=== PATIENT | male | born 1935 | race Caucasian/White ===

== ENCOUNTER 2017-05-06 07:33 | Inpatient (IN) | payer OTHER, MEDICARE ==
[~2017-05-06] VITALS: Ht 172.7 cm; Wt 103.9 kg
--- NOTE | ~2017-05-06 | CATHLAB ---
[facility] [place] [address] INVASIVE PROCEDURE REPORT Name: PANCHOLOIS A Room #: 214-P ADM IN ..#: [id number] Admission: 05/06/17 Attend Phys: Mauricio Perez Discharge: Date of : 33 Date of Service: 05/06/17 1631 Report #: [id number] THIS REPORT FOR: //name// APPROVED REPORT Patient Details Patient Status: In-Patient Room #: The patient is a 81 year-old male Event Personnel Jan Marrero Special Events Assistant, Suzy Cary RN RN, Ezra Lance RN, Scott Wong Aloi, Christine Monitor, Heike Giron Monitor Procedures Performed Art Access - R radial artery Left Heart Cath w/or w/o Coronaries [id number] [facility] [address]IER Place w/wo Plasty Single RCA 254203 Hemostasis with Hemoband 63811 Initial Mod Sed Same Phys/QHP Gr5y 478701 27387 Mod Sed Same Phys/QHP Ea 676569 Indication Dyspnea, Unstable angina Risk Factors Peripheral Vascular Disease, Hypercholesterolemia, Coronary Artery DiseaseHypertension Procedure Narrative The Right Wrist^ was infiltrated with 1% Lidocaine subcutaneous anesthesia. A TRANSRADIAL SLENDER 6F GLIDESHEATH KIT #[id number] sheath was inserted into the Right Radial Artery^. Coronary angiography was performed using coronary diagnostic catheters. The right coronary system was accessed and visualized with a JR 4 catheter. The left coronary system was accessed and visualized with a JL 3.5 catheter. The left ventricle was accessed and visualized with a Pigtail catheter. Left ventricular/Aortic Valve gradient assessed via catheter pullback. Left ventriculogram was performed in 30 degree projection. The patient tolerated the procedure well and there were no complications associated with the procedure. There was no hematoma. Intraoperative Conscious Sedation Sedation start time: 11:22 Case end Time: 12:15 Fentanyl 25 mcg Vers[address] [facility] [place] [address] INVASIVE PROCEDURE REPORT Name: LOIS DELEON Room #: 214-P [place] [facility]#: [id number] Admission: 05/06/17 Attend Phys: Mauricio Perez Discharge: Date of : 33 Date of Service: 05/06/17 1631 Report #: [id number] Fluoro Time: 12.57 minutes Dose: DAP 49722.40 cGycm2 13173 mGy Contrast Type and Amount: Visipaque 245 ml Coronary Angiography The patient's coronary anatomy is right dominant. Diagnostic Cath Left Main Large caliber vessel, no flow limiting lesions. LAD Moderate size caliber vessel, minimal plaquing in proximal segment. Circumflex Small-caliber vessel, with mild diffuse disease proximally, 30%. OM1 Moderate size caliber vessel, with mild disease in the proximal segment. Right Coronary Dominant vessel with a stent in the mid segment, with severe restenosis, 70%. R PDA No flow-limiting lesions. RPLV No flow-limiting lesions. Ramus Moderate size caliber vessel, with mild plaquing in the proximal segment. Left Ventriculography The left ventricle is normal in size with normal contractility. The left ventricular ejection fraction is estimated to be >55%. Hemodynamics The aortic pressure is 105/57 mmHg with a mean of 76 mmHg. The left ventricular pressure is 116/4 mmHg with a mean of mmHg. The left ventricular end diastolic pressure is 9 mmHg. PCI Technique Lesion Anticoagulation was achieved with Heparin. Percutaneous coronary intervention was performed on the mid right coronary artery. A VISTA 6FR JR 4 #[id number] Guide Catheter was used to engage the RCA ostium. A Luge Wire .014 x 182CM #[id number] Interventional Guidewire was used to cross the lesion. BALLOON DILATION A Balloon catheter TREK NC RX 2.5 X 12 #[id number] was inserted and inflated up to 10.00atm for 19seconds. STENT DEPLOYMENT [facility] [address] [place] [address] INVASIVE PROCEDURE REPORT Name: LOIS DELEON Room #: 214-P [place] M.R.#: [id number] Admission: 05/06/17 Attend Phys: Mauricio Perez Discharge: Date of : 33 Date of Service: 05/06/17 1631 Report #: [id number] A drug-eluting stent RESOLUTE RX 2.75 X 18 #[id number] was inserted and inflated up to 14atm for 20seconds. POST STENT DEPLOYMENT BALLOON DILATION A Balloon catheter Euphora NC RX 3.0 x 12 #[id number] was inserted and inflated up to 18.00atm for 20seconds. Additional Inflation: 16.00atm for 17seconds. Final angiography reveals 5 % stenosis with BERLIN 3 flow. COMMENTS Successful insertion of a 2.75 mm drug-eluting stent, postdilated with a 3.0 mm noncompliant balloon. Conclusion 1. Successful insertion of a drug-eluting stent into the restenotic lesion in the mid segment of the RCA. 2. Normal LV systolic function. 3. Recommend dual antiplatelet therapy for at least 6 months to one year. Recommendations Aggressive Medical Therapy <ELECTRONICALLY SIGNED> By: Jan Marrero MD 05/06/17 1631 163 163 Jan Marrero MD /INF
--- NOTE | ~2017-05-06 | EKG ---
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
--- NOTE | ~2017-05-06 | EKG ---
[address] [place] [address] ELECTROCARDIOGRAM REPORT Name: LOIS DELEON Room #: 214-P ADM IN M.R.#: [id number] Admission: 05/06/17 Attend Phys: Scott Segura MD Discharge: Date of : 33 Report #: [id number] THIS REPORT FOR: //name// [facility] Test Date: 2017-05-07 Test Time: 06:17:57 Pat Name: LOIS DELEON Department: Room: 214 P Gender: M Corporate Lawyer: SHANDA : 1935 Requested By: Jan Marrero Order Number: [id number] MD: Measurements Intervals [place] Rate: 64 P: 50 MO: 211 QRS: 55 QRSD: 103 T: 44 QT: 415 QTc: 428 Interpretive Statements Sinus rhythm Atrial premature complex Low voltage, extremity leads Anteroseptal infarct, old Compared to ECG 12/25/2006 03:20:32 Atrial premature complex(es) now present Low QRS voltage now present Myocardial infarct finding now present Sinus bradycardia no longer present First degree AV block no longer present [email or web address] By: 0617 06 Epiphany Epiphany, /EPI
--- NOTE | ~2017-05-06 | D ---
[facility] [place] [address] DISCHARGE SUMMARY Name: LOIS DELEON Room #: 214-P [facility] IN ..#: [id number] Admission: 05/06/17 Attend Phys: Scott Segura MD Discharge: 05/07/17 Date of : 33 Report #: [id number] THIS REPORT FOR: //name// CC: Scott Azar Julissa Goldberg Lucas DATE OF SERVICE: 05/07/2017 FINAL DIAGNOSES: Coronary artery disease. PROCEDURES: Cardiac catheterization with a right coronary stent. HOSPITAL COURSE: The patient was admitted with left-sided jaw and upper chest pain. He had some minor EKG changes. Dr. Marrero saw him in consultation, cardiac catheterization was performed. Please see his note for full details. Essentially, he had a stent placed in re-stenotic region. He tolerated the procedure well without incident. Overnight, he remained pain free with no symptoms. PHYSICAL EXAMINATION: GENERAL: On the day of discharge, he was awake and alert, eating a regular diet. VITAL SIGNS: Stable. LUNGS: Clear. HEART: Regular. ABDOMEN: Soft, normoactive bowel sounds. EXTREMITIES: Showed no edema. DISPOSITION: He will be discharged to home with cardiac diet, activity as tolerated, resume all home medications plus Effient 10 mg daily and pravastatin 40 mg a day along with his amlodipine, Lopressor, hydrochlorothiazide, finasteride, Flomax, Xanax, Celebrex, fish oil, metoprolol 25 mg, aspirin 81 mg. Follow up with Dr. Quintana in 1 month. <ELECTRONICALLY SIGNED> By: Scott Segura MD 05/07/17 1313 0819 0944 Scott Segura MD /nt
--- NOTE | ~2017-05-06 | EKG ---
[address] [place] [address] ELECTROCARDIOGRAM REPORT Name: LOIS DELEON Room #: 214-P ADM IN M.R.#: [id number] Admission: 05/06/17 Attend Phys: Scott Segura MD Discharge: Date of : 33 Report #: [id number] THIS REPORT FOR: //name// [facility] Test Date: 2017-05-06 Test Time: 15:11:56 Pat Name: LOIS DELEON Department: Room: 214 P Gender: M Tint Layer: Mauricio HAMM : 1935 Requested By: Jan Marrero Order Number: [id number] MD: Measurements Intervals [place] Rate: 61 P: 20 WV: 223 QRS: 18 QRSD: 98 T: 28 QT: 407 QTc: 410 Interpretive Statements Sinus rhythm Multiple premature complexes, vent & supraven Prolonged WV interval Low voltage, extremity leads Probable anteroseptal infarct, old Compared to ECG 12/25/2006 03:20:32 Low QRS voltage now present Myocardial infarct finding now present Sinus bradycardia no longer present [email or web address] By: 1511 1511 Epiphany Epiphany, /BIPIN
--- NOTE | ~2017-05-06 | H ---
[facility] [address] [address] HISTORY AND PHYSICAL Name: LOIS DELEON Room #: 214-P [facility] IN ..#: [id number] Admission: 05/06/17 Attend Phys: Scott Segura MD Discharge: Date of : 33 Report #: [id number] THIS REPORT FOR: //name// CC: Scott Constantinoernst Goldberg Lucas DATE OF SERVICE: 05/06/2017 CHIEF COMPLAINT: Neck and chest pain. HISTORY OF PRESENT ILLNESS: The patient is an 81-year-old gentleman with a history of heart disease, came to the emergency room this morning after being awaken at 3:00 a.m. with pain on the left side of his neck and chest. He felt some pain just from his ear down his neck towards his left upper chest. The pain persisted throughout the morning. Upon arrival to the emergency room here while walking in from his car through the parking lot, he complained of shortness of breath. In the ER, the pain has slowly subsided without much medical intervention. He has had no shortness of breath, nausea, vomiting or diaphoresis at rest. PAST MEDICAL HISTORY: Coronary artery disease. He has had a previous cardiac stent in 2004, hypertension, BPH, GERD, peripheral artery disease. He has had some iliac stents, hypertension, and arthritis. PAST SURGICAL HISTORY: As above. FAMILY HISTORY: Noncontributory. SOCIAL HISTORY: He is , lives with his at home. No chronic alcohol or tobacco use. ALLERGIES: MORPHINE. MEDICATIONS: Amlodipine, losartan and hydrochlorothiazide, Plavix, Proscar, Flomax, Combivent, Xanax, Celebrex, multivitamin, Lopressor. REVIEW OF SYSTEMS: He denies headache, productive cough, nausea, vomiting, diarrhea, constipation, dysuria, syncope. OBJECTIVE: VITAL SIGNS: Temperature 36.9, pulse 75, respirations 20, blood pressure 160/69. GENERAL: He is awake and alert, in no distress. HEAD AND NECK: Unremarkable. LUNGS: Clear. [facility] [address] [place] [address] HISTORY AND PHYSICAL Name: LOIS DELEON Room #: [address] [place] [address] IN M.R.#: [id number] Admission: 05/06/17 Attend Phys: Scott Segura MD Discharge: Date of : 33 Report #: [id number] HEART: Regular. ABDOMEN: Obese, soft, normoactive bowel sounds. EXTREMITIES: No edema. NEUROLOGIC: He is alert and oriented. Global strength is intact throughout. Lab reviewed electronically. Troponin 0.04. ASSESSMENT: 1. Chest pain. 2. Coronary artery disease. 3. Hypertension. PLAN: He will be admitted for cardiac event rule out with medical treatment at this point. Dr. Marrero has been consulted and home medications to continue. <ELECTRONICALLY SIGNED> By: Scott Segura MD 05/06/17 1334 0926 1002 Scott Segura MD /jesus
--- NOTE | ~2017-05-06 | EKG ---
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: [id number] : 1935 Requested By: Patricia Ashton Order Number: [id number] MD: Measurements Intervals [place] Rate: 82 P: 38 [place]: 203 QRS: 43 QRSD: 89 T: 16 QT: 359 QTc: 420 Interpretive Statements Sinus rhythm Ventricular trigeminy Low voltage, extremity leads Minimal ST depression, lateral leads Compared to ECG 12/25/2006 03:20:32 Ventricular premature complex(es) now present Low QRS voltage now present ST (T wave) deviation now present Sinus bradycardia no longer present First degree AV block no longer present [email or web address] By: 0742 0742 Epiphany Epiphany, /EPI
[~2017-05-06 07:33] MED LIST: ACULAR 0.5% EYE5 ML OP; ASPIR 8181 MG PO; CELEBREX 200 M200 M1 PO; COMBIVENT INH; COZAAR 50 MG TA50 M2 PO; FISH OIL 1,001000 M2 PO; FLOMAX0.4 MG PO; HYDROCHLOROTH12.5 M1 PO; LIVALO2 MG PO; NORCO 5-325 TA1 EACH PO; NORVASC10 MG PO; PLAVIX 75 MG TA75 M1 PO; PREDNISONE 20 M20 MG PO; PROSCAR 5MG TABL5 MG PO; TIMOPTIC2.5 M1; TOPROL XL100 MG PO; UNICOMPLEX M TA1 TA1 PO; XANAX 0.25 MG0.25 MG PO
[2017-05-06 07:40] VITALS: BP 160/69
[2017-05-06] MEDS ORDERED: LOPRESSOR25 PO (08:07)
[2017-05-06 08:36] LABS: ABSOLUTE NEUTROPHILS 7.3 thou/uL (1.4-8.2); BASOPHILS 0.4 % (0.0-2.0); HEMATOCRIT 38.8 % (42.0-52.0); HEMOGLOBIN 13.8 gm/dL (14.0-18.0); LYMPHOCYTES 12.3 % (24.0-44.0); MCH 30.5 pg (26.0-34.0); MCHC 35.7 g/dL (28.0-37.0); MCV 85.6 fL (80.0-100.0); MONOCYTES 5.5 % (1.0-8.0); PLATELET COUNT 185 thou/uL (150-400); POLYS 80.8 % (36.0-66.0); RBC 4.53 mil/uL (4.50-6.00); RDW 14.5 % (10.5-14.5)
[2017-05-06 08:37] LABS: MANUAL DIFF NO
[2017-05-06 08:39] LABS: APTT 26.1 Seconds (24.5-32.8); PROTIME 9.8 Seconds (9.3-11.4)
[2017-05-06 08:58] LABS: ANION GAP 14 mmol/L (7-16); BUN 23 mg/dL (7-18); CALCIUM 9.1 mg/dL (8.5-10.1); CHLORIDE 103 mmol/L (98-107); CO2 22 mmol/L (21-32); CREATININE 1.2 mg/dL (0.7-1.3); GLUCOSE 125 mg/dL (74-106); POTASSIUM 3.8 mmol/L (3.5-5.1); SODIUM 139 mmol/L (136-145)
[2017-05-06 09:06] LABS: TROPONIN-I < 0.04 ng/mL (<0.04-0.07)
[2017-05-06 09:43] VITALS: BP 136/57
[2017-05-06 10:17] VITALS: BP 145/64
[2017-05-06 13:20] VITALS: BP 172/66
[2017-05-06 19:53] VITALS: BP 146/75
[2017-05-06 23:34] VITALS: BP 146/68
[2017-05-07 03:45] LABS: HEMATOCRIT 32.7 % (42.0-52.0); MCH 30.9 pg (26.0-34.0); MCHC 36.8 g/dL (28.0-37.0); RBC 3.89 mil/uL (4.50-6.00); RDW 14.5 % (10.5-14.5); WBC 7.5 thou/uL (4.0-11.0)
[2017-05-07 04:11] LABS: CALCIUM 8.4 mg/dL (8.5-10.1); POTASSIUM 3.5 mmol/L (3.5-5.1); TROPONIN-I 0.2 ng/mL (<0.04-0.07)
[2017-05-07 04:12] VITALS: BP 147/58
[2017-05-07 07:32] VITALS: BP 156/74
[2017-05-07] MEDS ORDERED: EFFIENT10 MG PO (07:41)
[2017-05-07] MEDS ORDERED: ASPIR 8181 MG PO (07:43)
[2017-05-07] MEDS ORDERED: PRAVACHOL40 MG PO (07:52)
[2017-05-07 09:30] VITALS: BP 156/74
== END 2017-05-07 10:38 | disposition home or self-care (01) | DRG 247 ==
LOC: ER 07:33 → 2N 08:14 → EROBS 08:14 → 4W 08:14 → 2N 10:00
PROVIDERS: Emergency Medicine; Internal Medicine Cardiovascular Disease
PROC: 027034Z Dilation of Coronary Artery, One Artery with Drug-eluting Intraluminal Device, Percutaneous Approach (ICD-10-PCS; principal; 2017-05-06)
PROC: B2111ZZ Fluoroscopy of Multiple Coronary Arteries using Low Osmolar Contrast (ICD-10-PCS; principal; 2017-05-06)
PROC: B2151ZZ Fluoroscopy of Left Heart using Low Osmolar Contrast (ICD-10-PCS; principal; 2017-05-06)
PROC: 4A023N7 Measurement of Cardiac Sampling and Pressure, Left Heart, Percutaneous Approach (ICD-10-PCS; principal; 2017-05-06)
DX: T82.855A Stenosis of coronary artery stent, initial encounter (principal); I24.9 Acute ischemic heart disease, unspecified; I10 Essential (primary) hypertension; Z96.1 Presence of intraocular lens; K21.9 Gastro-esophageal reflux disease without esophagitis; K80.20 Calculus of gallbladder without cholecystitis without obstruction; I25.10 Atherosclerotic heart disease of native coronary artery without angina pectoris; N40.0 Benign prostatic hyperplasia without lower urinary tract symptoms; I73.9 Peripheral vascular disease, unspecified; M19.90 Unspecified osteoarthritis, unspecified site; I71.4 Abdominal aortic aneurysm, without rupture; E78.5 Hyperlipidemia, unspecified; I65.29 Occlusion and stenosis of unspecified carotid artery; E78.00 Pure hypercholesterolemia, unspecified; M47.816 Spondylosis without myelopathy or radiculopathy, lumbar region; Y83.8 Other surgical procedures as the cause of abnormal reaction of the patient, or of later complication, without mention of misadventure at the time of the procedure; Z87.81 Personal history of (healed) traumatic fracture; Z98.42 Cataract extraction status, left eye; Z98.41 Cataract extraction status, right eye; I25.2 Old myocardial infarction; Z88.5 Allergy status to narcotic agent; Z82.49 Family history of ischemic heart disease and other diseases of the circulatory system; Z87.891 Personal history of nicotine dependence; Y92.89 Other specified places as the place of occurrence of the external cause
CPT/HCPCS: 10081

== ENCOUNTER → 2017-07-17 | Outpatient (CLI) | payer OTHER, MEDICARE ==
[~2017-07-17] MED LIST changes: +EFFIENT10 MG PO; +LOPRESSOR25 PO; +PRAVACHOL40 MG PO
[2017-07-17 09:34] LABS: ABSOLUTE NEUTROPHILS 5.6 thou/uL (1.4-8.2); BASOPHILS 0.6 % (0.0-2.0); EOSINOPHILS 3.9 % (0.0-3.0); HEMATOCRIT 37.2 % (42.0-52.0); HEMOGLOBIN 13.1 gm/dL (14.0-18.0); LYMPHOCYTES 18.3 % (24.0-44.0); MCHC 35.2 g/dL (28.0-37.0); MCV 85.2 fL (80.0-100.0); MONOCYTES 7.7 % (1.0-8.0); PLATELET COUNT 213 thou/uL (150-400); POLYS 69.5 % (36.0-66.0); RBC 4.37 mil/uL (4.50-6.00); RDW 14.4 % (10.5-14.5); WBC 8.1 thou/uL (4.0-11.0)
[2017-07-17 09:37] LABS: MANUAL DIFF NO
[2017-07-17 09:48] LABS: CALCIUM 9.1 mg/dL (8.5-10.1); POTASSIUM 3.8 mmol/L (3.5-5.1)
== END ==
LOC: LABMALL 09:02 → CAT 11:51 → LABMALL 11:57
PROVIDERS: Nuclear Medicine Nuclear Cardiology
DX: I71.4 Abdominal aortic aneurysm, without rupture (principal)

== ENCOUNTER 2017-10-15 05:21 | Inpatient (IN) | payer OTHER, MEDICARE ==
[2017-10-01 11:06] LABS: HEMATOCRIT 39.8 % (42.0-52.0); HEMOGLOBIN 13.9 gm/dL (14.0-18.0); MCH 29.6 pg (26.0-34.0); MCHC 34.9 g/dL (28.0-37.0); MCV 84.7 fL (80.0-100.0); RBC 4.7 mil/uL (4.50-6.00); RDW 14.8 % (10.5-14.5); WBC 9.7 thou/uL (4.0-11.0)
[2017-10-01 11:09] LABS: URINE BILIRUBIN NEGATIVE (Negative); URINE BLOOD NEGATIVE (Negative); URINE CLARITY CLEAR; URINE COLOR YELLOW; URINE GLUCOSE-RANDOM* NEGATIVE (Negative); URINE KETONES NEGATIVE (Negative); URINE LEUKOCYTES NEGATIVE (Negative); URINE NITRITE NEGATIVE (Negative); URINE PROTEIN (DIPSTICK) NEGATIVE (Negative)
[2017-10-01 11:20] LABS: ALBUMIN 3.5 g/dL (3.4-5.0); CALCIUM 9.3 mg/dL (8.5-10.1); CREATININE 1.1 mg/dL (0.7-1.3); POTASSIUM 4.1 mmol/L (3.5-5.1); TOTAL BILIRUBIN 0.7 mg/dL (<0.1-1.0); TOTAL PROTEIN 6.9 g/dL (6.4-8.2)
[2017-10-01 11:27] LABS: APTT 26.1 Seconds (24.5-32.8)
[2017-10-15] VITALS (13 sets, daily range): BP systolic 66–135; BP diastolic 36–78
[~2017-10-15] VITALS: Ht 172.7 cm; Wt 98.6 kg
--- NOTE | ~2017-10-15 | EKG ---
[address] [place] [address] ELECTROCARDIOGRAM REPORT Name: LOIS DELEON Room #: PRE IN [facility]#: [id number] Admission: Attend Phys: Dirk Kent MD Discharge: Date of : 33 Report #: [id number] THIS REPORT FOR: //name// [facility] Test Date: 2017-10-01 Test Time: 10:46:50 Pat Name: LOIS DELEON Department: Room: Gender: Hot Dipper: kalebyvan : 1935 Requested By: Dirk Kent Order Number: [id number] MD: Kevin Masterson Measurements Intervals [place] Rate: 72 P: 27 MA: 202 QRS: 35 QRSD: 96 T: 22 QT: 384 QTc: 421 Interpretive Statements Sinus rhythm Low voltage, extremity leads Compared to ECG 05/07/2017 06:17:57 Atrial premature complex(es) no longer present Myocardial infarct finding no longer present Electronically Signed On 10-01-2017 15:10:46 KEY BED INSTALLER by Kevin Masterson [email or web address] <ELECTRONICALLY SIGNED> By: Kevin Masterson MD 10/01/17 1510 1046 1046 Kevin Masterson MD /BIPIN
[2017-10-16] VITALS (31 sets, daily range): BP systolic 90–220; BP diastolic 42–104
[2017-10-16 04:55] LABS: HEMATOCRIT 33.5 % (42.0-52.0); HEMOGLOBIN 11.7 gm/dL (14.0-18.0); MCH 29.7 pg (26.0-34.0); MCV 84.7 fL (80.0-100.0); RBC 3.95 mil/uL (4.50-6.00); RDW 14.9 % (10.5-14.5); WBC 14.9 thou/uL (4.0-11.0)
[2017-10-16 05:12] LABS: CALCIUM 8.2 mg/dL (8.5-10.1); MAGNESIUM 1.4 mg/dL (1.8-2.4); POTASSIUM 3.8 mmol/L (3.5-5.1)
[2017-10-17] VITALS: BP 156/53
[2017-10-17 04:30] VITALS: BP 136/46
[2017-10-17 07:40] VITALS: BP 118/34
[2017-10-17] MEDS ORDERED: ASPIRIN325 PO (10:14)
[2017-10-17] MEDS ORDERED: TYLENOL325 MG PO (10:14)
[2017-10-17 11:35] VITALS: BP 136/41
[2017-10-17 15:35] VITALS: BP 125/46
[2017-10-17 19:50] VITALS: BP 165/59
[2017-10-18 04:30] VITALS: BP 119/41
[2017-10-18 07:20] VITALS: BP 143/62
[2017-10-18 11:50] VITALS: BP 147/50
== END 2017-10-18 13:45 | DRG 269 ==
LOC: ICU 05:21 → TBA 05:21 → PRE 05:31 → ICU 16:41 → 2N 10-16 16:55
PROVIDERS: Nurse Practitioner; Thoracic Surgery (Cardiothoracic Vascular Surgery)
PROC: 04V03DZ Restriction of Abdominal Aorta with Intraluminal Device, Percutaneous Approach (ICD-10-PCS; principal; 2017-10-15)
DX: I71.4 Abdominal aortic aneurysm, without rupture (principal); I25.10 Atherosclerotic heart disease of native coronary artery without angina pectoris; I10 Essential (primary) hypertension; E78.5 Hyperlipidemia, unspecified; E83.42 Hypomagnesemia; F41.9 Anxiety disorder, unspecified; N40.0 Benign prostatic hyperplasia without lower urinary tract symptoms; Z79.899 Other long term (current) drug therapy; Z88.6 Allergy status to analgesic agent
CPT/HCPCS: 10078; 10081; 47375; 50010; 50101; 50386; 50455; 51078; 56524; 56526; 56527; 56668; 56760; 57093; 62110; 62900; 65020; 65040; 65043; 70005

== ENCOUNTER 2018-11-27 09:25 | Inpatient (IN) | payer OTHER, MEDICARE ==
[~2018-11-27] VITALS: Ht 172.7 cm; Wt 95.3 kg
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
[~2018-11-27 09:25] MED LIST changes: +ASPIRIN325 PO; +TYLENOL325 MG PO
[2018-11-27 09:26] VITALS: BP 121/55
[2018-11-27 09:55] LABS: ABSOLUTE NEUTROPHILS 5.9 thou/uL (1.4-8.2); BASOPHILS 0.6 % (0.0-2.0); EOSINOPHILS 2.5 % (0.0-3.0); HEMATOCRIT 39.3 % (42.0-52.0); HEMOGLOBIN 13.5 gm/dL (14.0-18.0); LYMPHOCYTES 12.5 % (24.0-44.0); MCH 29.5 pg (26.0-34.0); MCHC 34.4 g/dL (28.0-37.0); MCV 85.9 fL (80.0-100.0); MONOCYTES 7.4 % (1.0-8.0); PLATELET COUNT 246 thou/uL (150-400); RBC 4.57 mil/uL (4.50-6.00); RDW 14.7 % (10.5-14.5); WBC 7.6 thou/uL (4.0-11.0)
[2018-11-27 10:03] LABS: ANION GAP 12 mmol/L (7-16); BUN 18 mg/dL (7-18); CALCIUM 9.1 mg/dL (8.5-10.1); CHLORIDE 104 mmol/L (98-107); CO2 25 mmol/L (21-32); CREATININE 1.4 mg/dL (0.7-1.3); GLUCOSE 118 mg/dL (74-106); POTASSIUM 3.2 mmol/L (3.5-5.1); SODIUM 141 mmol/L (136-145)
[2018-11-27 10:12] LABS: ALBUMIN 3.2 g/dL (3.4-5.0); SGOT 20 U/L (15-37); SGPT 10 U/L (30-65); TOTAL BILIRUBIN 0.9 mg/dL (<0.1-1.0); TROPONIN-I <0.06 ng/mL (<0.06)
[2018-11-27 11:23] LABS: URINE BILIRUBIN NEGATIVE (Negative); URINE BLOOD NEGATIVE (Negative); URINE CLARITY CLEAR; URINE COLOR YELLOW; URINE GLUCOSE-RANDOM* NEGATIVE (Negative); URINE KETONES NEGATIVE (Negative); URINE LEUKOCYTES-REFLEX NEGATIVE (Negative); URINE NITRITE-REFLEX NEGATIVE (Negative); URINE PROTEIN (DIPSTICK) NEGATIVE (Negative); URINE SPECIFIC GRAVITY 1.025 (1.005-1.035)
[2018-11-27] MEDS ORDERED: TOPROL XL25 MG PO (11:24)
[2018-11-27] MEDS ORDERED: CELEXA10 MG PO (11:25)
[2018-11-27] MEDS ORDERED: XANAX 0.5 MG0.5 MG PO (11:25)
[2018-11-27] MEDS ORDERED: COZAAR 25 MG TA25 M1 PO (11:26)
[2018-11-27] MEDS ORDERED: PRAVACHOL40 MG PO (11:26)
[2018-11-27] MEDS ORDERED: AMLODIPINE BESY10 MG PO (11:26)
[2018-11-27 11:31] LABS: AMP/METHAMP Negative (Negative); BARBITURATES Negative (Negative); BENZODIAZEPINES POSITIVE (Negative); COCAINE Negative (Negative); METHADONE Negative (Negative); OPIATES Negative (Negative); PCP Negative (Negative)
[2018-11-27 13:33] VITALS: BP 153/63
[2018-11-27 14:06] VITALS: BP 150/57
--- NOTE | 2018-11-27 16:20 | NUR ---
PATIENT ADMITTED TO ROOM 526, ORDERS DR. INDY LONDON FOR CONFUSION, FORGETFULNESS. RESISISTIVE TO ADMISSION, WANTS TO HAVE DR. PARRY. 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 DAUGHTER WAS ENCOURAGED TO LEAVE ABOUT 1500. PATIENT SPOKE WITH NURSEKELLIE ENCOURAGED TO STAY. CONTINUE TO MONITOR.
--- NOTE | 2018-11-27 16:44 | EKG ---
[place] [address] [facility] [place] [address] ELECTROCARDIOGRAM REPORT Name: LOIS DELEON Room #: 526B-B ADM IN M.R.#: [id number] ������������������ Admission: 11/27/18 ������������������ Attend Phys: Savage Renee MD Discharge: ������������������ Date of : 33 Report #: [id number] ����������������������������������������������������������������� [id number] THIS REPORT FOR: //name// [facility] Test Date: 2018-11-27 Test Time: 09:55:13 Pat Name: LOIS DELEON Department: Room: 170 Gender: M Attendant Self Service Store: JAGDISH : 1935 Requested By: Christie Domingo Order Number: [id number] MD: Silver Arora Measurements Intervals [place] Rate: 76 P: 27 [place]: 194 QRS: 17 QRSD: 93 T: 15 QT: 369 QTc: 415 Interpretive Statements Sinus rhythm Multiform ventricular premature complexes left atrial enlargement Low voltage limb leads Anteroseptal infarct age indeterminate Compared to ECG 10/01/2017 10:46:50 Ventricular premature complex(es) now present Electronically Signed On 11-27-2018 13:38:29 TRACK GRINDER OPERATOR by Silver Arora K GRINDER OPERATOR [email or web address] ��������������������������������������������� <ELECTRONICALLY SIGNED> ���������������������������������������� By: Silver Arora MD ��������������������������������������������� 11/27/18 1644 4 4 Silver Arora MD /EPI
--- NOTE | 2018-11-27 17:43 | NUR ---
JANITORIAL ACCOUNT MANAGER, WU, ASSESSED PATIENT AT 1700; HOWEVER, RECEIVED A CALL BACK FROM N.P. REPORTED THAT DR. MCKEON IS PATIENT'S REGULAR DOCTOR. NURSE CALLED DR. MCKEON'S ANSWERING SERVICE. DR. NUNEZ TRAPEZE PERFORMER, WHO RETURNED THIS NURSE'S CALL AND WILL SEE PATIENT TOMORROW, SAT., NOVEMBER 28. SUSHMAELIZABETH BROUGHT IN HIS OWN BOTTLE OF ATIIVAN 0.5 MG; PHARMACY CONTACTED, STATED TO PLACE IN A BAG FROM THE [facility] AND THEY WILL SENIOR DEVOPS ENGINEER THE MEDICATION.
[2018-11-28 00:36] VITALS: BP 108/64
--- NOTE | 2018-11-28 01:51 | NUR ---
ASSESSMENT COMPLETE. 100/62 82 20 97.8F 92% ON RA. CONFUSION NOTED, STATES "I NEED TO GO TO MY MOTHER'S TOMORROW AND I NEED TO LEAVE THE HOSPITAL NOW" (FOR THAT PURPOSE). ADVISED THAT WHEN HE SEES TOMORROW WILL NEED TO DISCUSS WITH FOR PERMISSION TO LEAVE HOSPITAL AND ATTEND . TOOK 2100 MEDS WHOLE WITH WATER. INCONTINENT OF BOWEL IN BRIEFS. PT CLEANED UP AND NEW BRIEFS PROVIDED. RESISTED EFFORTS TO CLEAN UP AND PROVIDE NEW BRIEFS, SAYING "IM AN ADULT, DONT YOU THINK I CAN TAKE MYSELF TO THE BATHROOM?" OUT OF BED REPEATEDLY, COMMING OUT OF ROOM WITH NO SHIRT/HOSPITAL GOWN ON TO COVER CHEST. EXPLAINED EACH TIME THAT IN PUBLIC AREAS IT IS REQUIRED THAT HE WEAR THE GOWN OR A SHIRT. T SHIRT PROCURED FROM PTS LOCKER, AND PROVIDED TO WEAR.
--- NOTE | 2018-11-28 06:32 | NUR ---
SLEPT 6 HOURS.
[2018-11-28 07:16] LABS: BASOPHILS 0.4 % (0.0-2.0); EOSINOPHILS 1.7 % (0.0-3.0); HEMATOCRIT 34.5 % (42.0-52.0); HEMOGLOBIN 12.4 gm/dL (14.0-18.0); LYMPHOCYTES 17.5 % (24.0-44.0); MCH 30.8 pg (26.0-34.0); MCHC 35.8 g/dL (28.0-37.0); MCV 85.9 fL (80.0-100.0); MONOCYTES 7.8 % (1.0-8.0); PLATELET COUNT 199 thou/uL (150-400); POLYS 72.6 % (36.0-66.0); RBC 4.02 mil/uL (4.50-6.00); RDW 14.6 % (10.5-14.5); WBC 6.9 thou/uL (4.0-11.0)
[2018-11-28 07:28] LABS: CREATININE 1.1 mg/dL (0.7-1.3); MAGNESIUM 1.5 mg/dL (1.8-2.4); POTASSIUM 3.1 mmol/L (3.5-5.1)
[2018-11-28 07:30] VITALS: BP 151/60
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
[2018-11-28 12:49] VITALS: BP 151/60
--- NOTE | 2018-11-28 17:49 | NUR ---
PATIENT REQUESTED THE PHONE AT ABOUT 1600, TO CALL HIS DAUGHTER, KELLIE. KELLIE HAD PREVIOUSLY STATED THAT SHE WOULD WAIT UNTIL FRIDAY AFTERNOON TO CALL PATIENT, SO DID NOT IMMEDIATELY GIVE HIM THE PORTABLE PHONE. HE BECAME VERY ANGRY AND POUNDED HIS FIST ON THE NURSE,S STATION DOOR BEFORE GOING TO HIS ROOM. NURSE DID GIVE PATIENT THE PHONE A SHORT TIME LATER TO SPEAK TO HIS DAUGHTER. HOWEVER, NURSE TOOK THE PHONE BACK AFTER HE HAD A SHORT CONVERSATION WITH KELLIE. HE WAS ARGUING WITH HER ABOUT PICKING HIM TO TAKE HIM HOME. PATIENT HAS BEEN DISTRACTED SINCE THAT TIME WITH DINNER, AND CONVERSING BY NURSECYNTHIA.
[2018-11-28 19:20] VITALS: BP 142/73
[2018-11-29 01:17] VITALS: BP 142/73
--- NOTE | 2018-11-29 04:21 | NUR ---
PT HAS OBVIOUS MEMORY ISSUES. BELIEVES IS STILL ALIVE, EVEN THOUGH STAFF AND FAMILY HAVE INFORMED HIM OTHERWISE. IN AND OUT OF ROOM EARLY IN SHIFT. TOOK HS MEDS W/O PROBLEM. FORGETFUL. THINKS HE HAS A JOB TO DO HERE. WANTED TO ASSIST STAFF DOING THE LAUNDRY. UP AND DOWN DURING THE NIGHT. OUT IN DAY AREA ONE TIME. SPOKE WITH KELLIE ON THE PHONE BEFORE GOING TO BED. SPEPT OFF AND ON THROUGH THE NIGHT.
[2018-11-29 07:58] VITALS: BP 137/64
--- NOTE | 2018-11-29 08:02 | HC ---
[facility] [place] [address] CONSULTATION Name: PANCHOKARYY HAYLEY Room #: 526B-B ADM IN M.R.#: [id number] Admission: 11/27/18 ������������������ Attend Phys: Savage Renee MD Discharge: ������������������ Date of : 31 Report #: [id number] THIS REPORT FOR: //name// CC: Doe Renee DATE OF SERVICE: 11/28/2018 REASON FOR CONSULTATION: Medical management. HISTORY OF PRESENT ILLNESS: The patient is an 83-year-old gentleman who was admitted to the Emergency Room with complaints of memory loss. His about 3 or 4 months ago and his family has reported short-term memory loss. They said at times he cannot remember that he attended his 's and that they talked about the preparations and ceremony. He has apparently been calling them several times a day and constantly asking where his is. He has been to the office twice. We had not seen him in the office for over 2 or 3 years and his daughter brought him in. Initially, my concern was that of depression related to his loss. Lexapro was added and he was seen two weeks later in follow up. At that time, his daughter still said he was showing short-term memory lapses and I referred him for outpatient neuropsych testing; however, it appears that his daughter said he has been becoming more confused in the last several days. It is not clear whether he is taking his medications or meals regularly and he had trouble walking. For this reason, they brought him to the Emergency Room. PAST MEDICAL HISTORY: Hypertension; prostatitis; lumbar disk disease, he has had surgery twice; coronary artery disease with prior history of stents; dyslipidemia; COPD; BPH. He has had abdominal aortic aneurysm, I believe previous stent graft. PAST SURGICAL HISTORY: As above. FAMILY HISTORY: Noncontributory. SOCIAL HISTORY: He was living at home alone, prior smoking history, but none recently. No chronic alcohol is known. ALLERGIES: MORPHINE. MEDICATIONS: Livalo 2 mg, Plavix 75 mg, hydrochlorothiazide 12.5 mg, Lexapro 10 mg, aspirin 81 mg, metoprolol 25 mg half tab b.i.d., losartan 100 mg, amlodipine 10 mg, fish oil, multivitamin, Xanax 0.25 mg twice a day as needed, Flomax 0.4 mg, Proscar 5 mg. REVIEW OF SYSTEMS: He denies headache, chest pain, shortness of breath, [facility] [address] [place] [address] CONSULTATION Name: LOIS DELEON Room #: 526B-B [facility].#: [id number] Admission: 11/27/18 ������������������ Attend Phys: Savage Renee MD Discharge: ������������������ Date of : 33 Report #: [id number] abdominal pain, nausea, vomiting, diarrhea, constipation, dysuria, syncope. OBJECTIVE: VITAL SIGNS: Temperature 37.1, pulse 87, respirations 16, blood pressure 108/64, O2 sat 96% on room air. GENERAL: He is awake and alert, in no distress. HEAD AND NECK: Unremarkable. LUNGS: Clear. HEART: Regular. ABDOMEN: Soft, normoactive bowel sounds. EXTREMITIES: No edema. NEUROLOGIC: He moves all extremities. Strength globally intact. COGNITIVE: He recognized that he was in the hospital. He recognized me as his doctor, but not by name. In one sentence, he stated that his mother's was today, but in the next sentence, he stated that Foster, his , about 3-4 weeks ago. LABORATORY DATA: Reviewed. Pertinent is potassium 3.1, magnesium 1.5. ASSESSMENT: 1. Hypertension. 2. Coronary artery disease. 3. Electrolyte disturbance. 4. Chronic obstructive pulmonary disease. 5. Situational depression. 6. Memory loss. PLAN: I will continue and consolidate his medications from home, electrolyte replacement will be added and follow up lab data on Friday. As mentioned, I started Lexapro as an outpatient. We will await psychiatric evaluation for mood treatment. I feel there is a degree of depression here from his recent loss, but also there may be underlying dementia, but now he is more exposed to his family that his is not there to support him. We will follow his stay for medical issues with you. ��������������������������������������������� <ELECTRONICALLY SIGNED> ���������������������������������������� By: Scott Segura MD ��������������������������������������������� 11/29/18801 6 42 Scott Segura MD /nt
[2018-11-29 09:45] VITALS: BP 142/73
--- NOTE | 2018-11-29 10:09 | NUR ---
ASSUMED CARE AT 0715. PT. REMAINS FORGETFUL, BUT IS REMEMBERING THINGS FOR SEVERAL MINUTES THAT HE HAS BEEN TOLD. YESTERDAY HE DID NOT REMEMBER ANYTHING HE WAS TOLD EVEN FOR FOR A MINUTE. HE TALKED TO HIS DAUGHTER ON THE PHONE. EATING WELL. TOOK MEDICATIONS WITHOUT DIFFICULTY.
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
[2018-11-30 01:33] VITALS: BP 159/50
--- NOTE | 2018-11-30 03:18 | NUR ---
PT UP AND DOWN MUCH OF THE NIGHT. VERY CONFUSED BUT REDIRECTABLE. WANTED TO CALL , BUT SETTLED FOR PHONE CALL TO DAUGHTER. RESTLESS. OUT OF ROOM ABOUT EVERY 2 HOURS THROUGH THE NIGHT. UNSURE TO WHO WE ARE AND WHAT WE'RE DOING. NEEDS CONSTANT CLARIFICATION TO WHY HE IS HERE.GENERALLY CORDIAL, WITH NO NEGATIVE BEHAVIOR.
[2018-11-30 04:40] LABS: CALCIUM 8.8 mg/dL (8.5-10.1); CREATININE 0.9 mg/dL (0.7-1.3); MAGNESIUM 1.7 mg/dL (1.8-2.4)
[2018-11-30 07:15] VITALS: BP 136/57
--- NOTE | 2018-11-30 18:38 | NUR ---
THIS NURSE WAS TALKING WITH PATIENT LOIS. LOIS WAS THINKING HE WAS SUPPOSED TO BE DISCHARGED TONIGHT AND WANTED HIS PERSONAL BELONGINGS RETURNED TO HIM AND WANTED HIS ADULT CHILDREN'S PHONE INFORMATION. LOIS APPEARED AGITATED. ANOTHER PATIENT, KE, WHO WANTED TO SPEAK WITH THIS NURSE AND APPEARED ANGRY APPROACHED THIS NURSE ALSO REQUESTING TO BE DISCHARGED. KE GOT CLOSER TO THIS NURSE, LOIS LUNGED AT KE AND PUSHED KE AWAY FROM THIS NURSE. THIS NURSE AND THE TECH LOIS AND KE AND ESCORTED THEM TO SEPARATE AREAS. ABOUT 10 MINUTES LATER WHEN KE AND LOIS WERE WITHIN TALKING DISTANCE, LOIS EXPLAINED TO KE THAT HE WAS TRYING TO TALK WITH THIS NURSE AND HE DIDN'T LIKE THAT HE WAS BEING INTERUPTED. LOIS THEN APOLIGIZED TO KE FOR HIS BEHAVIOR. UPON PROMPTING FROM THE TECH, KE APOLIGIZED TO LOIS.
--- NOTE | 2018-11-30 19:44 | NUR ---
PATIENT ALERT AND ORIENTED TO SELF AND NEEDS MIN. PROMPTING TO PLACE. PATIENT PARTICIPATED IN GROUPS AND GOOD APPETITE AND ASSISTING ANOTHER FEMALE PATIENT WITH WALKER THOUGHOUT THE DAY TO ENSURE SHE IS SAFE. PATIENT DAUGHTER UPDATE VIA PHONE IN MORNING AND AGAIN IN THE EVENING. SHE HAS QUESTIONS ABOUT TREATMENT PLAN AND DISCHARGE PLANS. SHE WOULD LIKE SUFFICIENT TIME TO PREPARE FOR HER FATHER'S DISCHARGE. SHE FEELS THAT SOMETIMES HE GETS ANGRY AND MAY INSIST ON RETURNING TO HIS HOME AND DRIVING. PATIENT STATES HE STAYS BUSY AND NEEDS TO RETURN HOME TO ACCOMPLISH TASKS. DR. AL AWARE OF PATIENT DAUGHTER'S QUESTIONS.
[2018-11-30 20:07] VITALS: BP 157/65
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
--- NOTE | 2018-12-01 06:29 | NUR ---
SLEPT 3.8 HOURS. SLEPT ON THE COUCH IN THE DAY ROOM PART OF THE NOC.
[2018-12-01 07:30] VITALS: BP 148/67
--- NOTE | 2018-12-01 15:27 | NUR ---
PATIENT HAS BEEN UP AND OUT ON THE UNIT. TOOK HIS MEDICATION WHOLE WITHOUT DIFFICULTY. HE IS EATING MEALS AND DRINKING FLUID VERY WELL. PATIENT IS ALERT, PLEASANTLY CONFUSED, BUT REDIRECTABLE. CONSTANTLY TALKING ABOUT CATCHING A CAB " I AM WAITING FOR MY TAXI SO I CAN GET HOME BEFORE DARK". PATIENT'S DAUGHTER CALLED WANTS SOMEBODY TO CALL AND TALK TO HER ABOUT PLAN OF CARE, THE DON NOTIFIED, THE CONCRETE GUN OPERATOR IS OUT OF THE FACILITY TODAY. PATIENT DENIES SUICIDAL AND HOMOCIDAL IDEATION, WILL NOT RESPOND APPROPRIATELY TO ASSESSMENT QUESTION DUE TO CONFUSION. NO AGGRESSION OR AGITATION NOTED AT THIS TIME, NO SIGN OF ACUTE DISTRESS NOTED, WILL MONITOR FOR SAFETY.
[2018-12-01 19:27] VITALS: BP 168/68
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
--- NOTE | 2018-12-02 05:51 | NUR ---
AWAKENED @ 05:30. TOILETED AND ASSISTED TO DRESS IN HOSPITAL PANTS AND HOSPITAL GOWN. SLEPT 9 HOURS. WENT BACK TO HIS ROOM AND TOOK OFF HIS HOSPITAL PANTS. SITTING ON THE BED, SAYS THAT HE DOES NOT KNOW HIS NAME OR AGE.
[2018-12-02 08:47] VITALS: BP 154/60
--- NOTE | 2018-12-02 15:21 | NUR ---
ASSUMED CARE AT 0715 TODAY. PT. CONTINUALLY ASKING THE SAME QUESTIONS TIME AND TIME AND TIME AGAIN OF STAFF, REFUSING TO ACCEPT ANSWERS AND/OR DOES NOT REMEMBER INFORMATION PROVIDED TO HIM. HE WAS ASKED TO ABORT THE REDUNDANT QUESTIONING AND ATTEND GROUPS THIS MORNING. HE REQUIRED SEVERAL REDIRECTIONS BEFORE HE COMPLIED WITH THE REDIRECTION OF STAFF. HE HAS ATTENDED GROUPS TODAY AND ATE MEALS ON THE UNIT. HAS BEEN LESS INTRUSIVE WITH STAFF AND PEERS SINCE THIS MORNING. SYPHILIS AB IGG DRAWN BUT ACCORDING TO LAB IT IS SENT OUT TO LAB [facility] AND MORE THAN LIKELY WILL NOT SEE RESULTS UNTIL FRIDAY. CONTINUES TO BE CONFUSED AND HALLUCINATES EVIDENCED BY SAYING PEOPLE ARE TALKING TO HIM IN HIS ROOM (NO ONE WILL BE IN HIS ROOM WHEN IS SAID), AND HAVING A HARD TIME WITH REDIRECTION AND BEING INTRUSIVE.
[2018-12-02 16:03] VITALS: BP 154/60
[2018-12-02 19:23] VITALS: BP 153/68
--- NOTE | 2018-12-02 22:49 | NUR ---
ASSUMED CARE OF THE PT AT 1945PM. THE PT WAS SITTING IN THE DAYROOM WHEN THIS SERVICE DESK SPECIALIST FIRST CAME ON DUTY, HE WAS EATING A SNACK AND WATCHING TV. ALERT ET ORIENTED X 2. WALKS WITH A STEADY GAIT. STATED THAT HE IS VERY ANXIOUS THIS PM, WANTED TO CALL HIS SECOND . EXPLAINED TO THE PT THAT SHE HAD RECENTLY. 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 THE PT TOOK HIS MEDICATIONS WITHOUT ANY DIFFICULY. HE WENT TO BED THEN CAME OUT IN THE HALLWAY, WITH HIS SHIRT OFF. REMAINS ON 12 MINUTE CHECKS.
--- NOTE | 2018-12-03 00:12 | NUR ---
THE PT C/O ABOUT BACK PAIN EARLIER IN THE SHIFT, THIS CHEMICAL LIBRARIAN GAVE THE PATIENT TYLENOL ORDERED, WHEN THIS CHEMICAL LIBRARIAN WENT TO GIVE IT TO HIM, HE QUESTIONED THIS CHEMICAL LIBRARIAN AND CAME WALKING TOWARDS THIS CHEMICAL LIBRARIAN, ASKING WHO THIS CHEMICAL LIBRARIAN WAS AND REFUSED TO TAKE THE MEDICATION, SAID HE WOULD TAKE IT LATER. THIS CHEMICAL LIBRARIAN EXPLAINED TO THE PT THAT THE MEDICATION COULD NOT BE LEFT IN HIS ROOM, HE TOOK IT AND CLOSED THE DOOR IN THE FACE OF THE CHEMICAL LIBRARIAN. THIS CHEMICAL LIBRARIAN CALLED THE RUBBER CUTTER LIBRARIAN HELPER, WHO GAVE THIS CHEMICAL LIBRARIAN AN ORDER FOR ZYPREXA 5 MG PO OR 5MG IM TO BE GIVEN EVERY 4 HOURS NEEDED FOR AGITATION.
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
--- NOTE | 2018-12-03 04:23 | NUR ---
STAFF WALKED INTO THE PT'S ROOM AND FOUND THE PT SITTING ON THE OTHER BED IN HIS ROOM, THE BED IN WHICH HE HAS BEEN SLEEPING IN HAD BECOME UNPLUGGED FROM THE WALL. HE HAD THROW HIS CLOTHING ALL OVER THE ROOM. THE PT STATED, "WHEN ARE THE VOICE DATA COMMUNICATIONS ENGINEER COMING? THIS ROOM IS GOING TO EXPLODE!" HE MOVED A CHAIR OUT OF HIS ROOM AND MOVED IT INTO THE HALLWAY, WE CLOSED THE DOOR TO HIS ROOM. HE STATED, "THAT SOMEONE HAD BETTER COME AND SEE THAT SOMETHING WAS COMING OUT OF HIS ROOM, UNDER THE DOORWAY." STAFF TRIED TO REASSURE THE PT, HE IS NOW SITTING IN THE CHAIR IN THE HALLWAY.
--- NOTE | 2018-12-03 06:12 | NUR ---
THE PT SLEPT 1 HOUR LAST NIGHT.
[2018-12-03 07:51] VITALS: BP 148/76
--- NOTE | 2018-12-03 18:20 | NUR ---
[id number] NAME AND LOCATION. PLEASANTLY CONFUSED. GOOD APPETITE FED SELF MEALS IN DINNING ROOM. ATTENDED GROUPS WITH GOOD PARTICIPATION. VISITED WITH PEERS IN DINNING ROOM MOST OF DAY. SLOW STEADY GAIT.
[2018-12-03 20:27] VITALS: BP 161/58
[2018-12-04 00:41] VITALS: BP 161/58
--- NOTE | 2018-12-04 03:25 | NUR ---
PT REMAINS CONFUSED AND FORGETFUL. CALLED DAUGHTER, AND 20 MINUTES LATER ASKED TO CALL DAUGHTER. DID NOT BELIEVE THAT HE HAD ALREADY SPOKEN WITH HER. SMILES READILY, AND HAS SHOWN NO SIGNS OF ANGER OR HOSTILITY IN ANY WAY. TOOK HS MEDS AFTER EVENING SNACK. SLEPT WELL UNTIL 0300, THEN UP UNSURE TO WHERE HE IS. REDIRECTED AND RETURNED TO ROOM AND TO SLEEP.
[2018-12-04 07:48] VITALS: BP 139/60
--- NOTE | 2018-12-04 16:55 | NUR ---
PATIENT WAS PACING INSTEAD OF SITTING IN GROUP PARTICIPATING FOR THE AFTERNOON GROUP. THIS NURSE SUCCESSFULLY ENGAGED PATIENT IN COMPLETING FIVE UZBEK PUZZLES TO HELP HIM RELIEVE STRESS. PATIENT DID BECOME MORE CALM, SAT DOWN AT DR TABLE AFTER PUZZLES AND LOOKED AT SOME MAGAZINES, UNTIL HIS DAUGHTER, KELLIE, CAME TO VISIT WITH HIM. PATIENT WALKED DAUGHTER TO EXIT DOOR, DID NOT ATTEMPT TO LEAVE WITH HER. CONTINUE TO MONITOR.
--- NOTE | 2018-12-04 17:28 | NUR ---
7a-7p: Patient ambulatory in halls and in dining room, confusion noted to place, time and events, easily re-directed when searching for exit, no aggressive behavior noted this shift. One episode of patient undressing in hallway, easily re-directed to room. Appetite good, consumes 100% at meals, takes pills without problem. Patient requires minimal assist for ADL's, ambulates independently, gait slow and unsteady at times. Denies pain or discomfort, last BM 12/03, bowel sounds active x4 wuads, lung tierney CTA bilat, no cough noted. Actively participates in therapy and group sessions. Will continue to monitor.
[2018-12-04 19:26] VITALS: BP 164/65
[2018-12-04 23:54] VITALS: BP 164/65
--- NOTE | 2018-12-05 03:07 | NUR ---
PT RESTLESS THIS PM. UP AT DESK, SEEKING ATTENTION FROM STAFF ABOUT WHEN HE IS GETTING TO LEAVE. INFORMED HIM ON MORE THAN ONE OCCASION THAT HIS DISCHARGE WILL BE DECIDED BY TEAM, INCLUDING MD. "WHEN", HE WANTED TO KNOW. UNABLE TO MAKE HIM UNDER STAND. CONFUSED AND LACKS RECALL OF PREVIOUS CONVERSATIONS. TOOK HS MEDS FOLLOWING SNACKS. PROVIDED TRAZADONE TO ASSIST WITH SLEEP. RETURNED TO ROOM AT 2200, AND CONTINUES TO SLEEP AT THIS TIME.
[2018-12-05 07:15] VITALS: BP 141/62
[2018-12-05 10:32] VITALS: BP 141/62
[2018-12-05 19:16] VITALS: BP 158/67
--- NOTE | 2018-12-05 23:54 | NUR ---
ASSUMED CARE @ 19:15. IN THE DAY ROOM SITTING AT A TABLE WITH HIS BACK TO THE WINDOW. OVERCAST WEATHER NOTED. A&O X 2 ORIENTED TO PERSON AND PRESIDENT. THINKS THAT HE IS IN [place] IN A HOTEL. VS 36.4 C 158/67 78 22 95. GIVEN TRAZADONE PRN @ HS WITH 2100 MEDS @ 21:15. DENIES SI HI. STATES FEELS A LITTLE LESS CONFUSED. MINIMAL CONFUSION CONTINUES, DOES REMEMBER THAT HIS MOTHER PASSES WHEN HE WAS A TEENAGER. THE FIRST NOC THAT HE WAS ON THE FLOOR, HE THOUGHT HIS MOTHERS WOULD BE THE NEXT DAY, AND HE NEEDED TO LEAVE TO GO. WENT TO HIS ROOM @ 11:30. NOT IN BED AT THIS TIME OF WRITING. WILL CONTINUE TO MONITOR.
[2018-12-06 11:48] VITALS: BP 158/6
[2018-12-06 13:05] VITALS: BP 171/75
--- NOTE | 2018-12-06 15:33 | NUR ---
PT. ON THE UNIT WHEN CARE WAS ASSUMED AT 0715. PT. HAD NOT SLEPT ONLY 1 HOUR ALL NIGHT. DID NOT SLEEP TODAY. DID TAKE SHOWER THIS AM. MANIC BEHAVIORS CONTINUE EVIDENCED BY CONTINUAL TALKING, TRYING TO CARE TAKE FEMALE PEERS, BEFRIENDING MALE PEERS, ASKING TO GET INTO HIS ROOM OVER AND OVER AND OVER AGAIN. HE ATTEMPTED TO MAKE A CAST FOR HIS ROOM DOOR OUT OF A SUGAR PACKET, WEDGED A SACK IN HIS DOOR TO HIS ROOM BEFORE CLOSING IT. HE CONTINUALLY CAME TO THE NURSES STATTION ASKING TO HAVE HIS ROOM UNLOCKED AT LEAST 8 TIMES IN A ROW IN A 5 MINUTE PERIOD OF TIME BECAUSE HE CONTINUALLY SHUT HIS DOOR LOCKING IT. PT. ASKED TO KEEP HIS ROOM DOOR OPEN, HOWEVER, HE DID NOT DO THIS. DID ATTEND GROUPS. ONE FEMALE PEER TOLD HIM HE NEEDED TO BE QUIET. HE STOPPED TALKING FOR A SHORT PERIOD OF TIME. HAS NOT REPORTED HAVING A BM TODAY OF THIS WRITING. OUT FOR ALL MEALS. COOPERATIVE WITH TAKEING HIS MEDICATIONS. AT ONE POINT ANOTHER NURSE REPORTED HE WAS GETTING HANDSY WITH THE LADIES AND NEEDED SOME REDIRECTION.
[2018-12-06 19:56] VITALS: BP 176/76
[2018-12-06 23:40] VITALS: BP 153/91
[2018-12-07 05:29] LABS: CALCIUM 8.2 mg/dL (8.5-10.1); CREATININE 0.8 mg/dL (0.7-1.3); POTASSIUM 3.8 mmol/L (3.5-5.1)
--- NOTE | 2018-12-07 07:28 | NUR ---
patient restless, walking in hallways, with increasing anxiety in the evening. talking with a female patient about leaving together, sitting next to each other in day room. this was under direct nursing supervision, no harm to either patient from interactions but did have a factor in increasing this patient's anxiety. seperated him from this stimuli. patient began having hallucinations about a homicide investigation occuring on unit. did not respond to evening meds, given IM injection of olanzeprine. continued to have steady gait, sitting on side of bed with no obvious sedation. patient observed falling/sitting down to the floor, appeared to be loss of balance or weakness. unchanged physical reassessment, baseline mentation, able to stand with x [address] Horn and nursing tooling supervisor notified. left message with daughter. no injury noted, did not hit his head. continued to sit on side of bed fidgeting with blankets for 1 hr, then was able to sleep soundly for 4hrs. calm, pleasant this morning. compliant with changing clothes after urine incontinence, steady gait although slower this morning.
[2018-12-07 08:00] VITALS: BP 129/49
--- NOTE | 2018-12-07 08:54 | NUR ---
SHANIA left a voicemail for Inez Vazquez concerning pt. SHANIA provided contact information. SHANIA requested a call back.
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
--- NOTE | 2018-12-07 14:15 | NUR ---
Nutrition: pt admitted with generalized weakness, depression and seen for LOS. 100% of meals documented and pt voiced that he "always cleans his plate". Likes the foods he has been receiving and voices no significant weight changes. Low nutrition risk at this time.
--- NOTE | 2018-12-07 14:39 | NUR ---
MILDLY SOMULENT SO FAR THIS SHIFT-VISIBLE IN [place]-SITTING IN DAYROOM WITH PEERS BUT IS NOTED TO BE DOZING IN SHORT INTERVALS IN CHAIR. MILD DROOLING-APPEARS UNKEMPT-OFFERED SHAVE AND CHANGE OF CLOTHES BUT HE REFUSES STATING"I'M LEAVING TONIGHT" ORIENTED TO PERSON ONLY. DENIES COMPLAINTS OF PAIN.SLOWED SPEECH,BLUNTED AFFECT.
[2018-12-07 19:51] VITALS: BP 155/61
[2018-12-07 19:54] VITALS: BP 138/53
[2018-12-08] VITALS (7 sets, daily range): BP systolic 120–182; BP diastolic 64–76
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
--- NOTE | 2018-12-08 06:40 | NUR ---
TOOK 2100 MEDS WITHOUT DIFFICULTY. ASKED FOR AND PROVIDED HS SLEEP MEDS. REFUSED TO GO TO HIS BED, LAID ON THE COUCH @ 23:30. AWOKE @ 00:45 AND STUMBLED WHEN HE WALKED. STAFF TRIED TO ASSIST AND PATIENT HIT STAFF AND PUSHED THEM AWAY, UNSUPPORTED, HE FELL ON THE FLOOR, ASSISTED FALL. NO INJURIES NOTED IN POST FALL ASSESSMENT. INTERIOR DESIGN CONSULTANT ADVISED OF FALL. SECURITY CALLED, WITH THEIR ASSISTANCE, TRANSSFERRED TO W/C AND WHEELED TO HIS ROOM. CLEAN PANTS , CLEAN INCONTINENCE PANTS, PROVIDED. BECAME COMBATITIVE WITH SECURITY AND NURSING STAFF. AFTER HAD BEEN IN BED ABOUT 30 MINUTES, TRIED TO GET OUT OF BED. STAFF PROVIDED A URINAL, TO MEET HIS STATED NEED. GIVEN PRN FOR EXTREME AGITATION IM INJECTION. TOTAL SLEEP 4.8 HOURS.
--- NOTE | 2018-12-08 15:20 | NUR ---
Pt presented in afternoon recreation group following imaging tests. Pt sat in seat next to DEVELOPER EVANGELIST leading group. He began to fiddle with paperwork on table, grabbing colored pencils, and other pts tissues. DEVELOPER EVANGELIST requested that pt leave items be. Pt immediately stood up, hovered over DEVELOPER EVANGELIST, gritted teeth so that top dentures nearly fell out, and raised a fist while stating I'll tell you what I'm going to do. DEVELOPER EVANGELIST told pt that he would need to leave group and that violence is unacceptable. Pt exited group room and was ecorted to his own room by CADMIUM LIQUOR MAKER with no further incident.
--- NOTE | 2018-12-09 02:57 | NUR ---
PT RESTLESS AND UNSTEADY ON HIS FEET. THINKS HE IS "GETTING TOO MUCH MEDICINE" NEEDS CONSTANT ENCOURAGEMENT TO REMAIN IN BED. DOUBLED UP FIST AT THIS STAFF AND NEEDED TO BE REMINDED OF THE INAPPROPRIATENESS OF THAT GESTURE. CONTRITE AND GOT INTO BED WITH ASSIST. FINALLY SETTLED AND CONTINUES TO BE SLEEPING AT THIS TIME. FRUSTRATION AND CONFUSION REMAIN BARRIERS.
--- NOTE | 2018-12-09 11:58 | NUR ---
Dr. Horn left a voicemail for Ayde Vazquez concerning pt. Dr. Horn stated that pt health is improving, and potentially will be d/c on December 142018. SW requesting follow-up call.
--- NOTE | 2018-12-09 13:19 | NUR ---
NOTED TO BE UNKEMPT THIS AM-SMELLS OF URINE,UNSHAVEN,CLOTHING SOILED-INITALLY REFUSED OFFERS OF NURSING STAFF TO ASSIST WITH SHOWER AND SHAVE-STATING "I WILL DO IT LATER" BUT WITH PROMPTING AND SUPPORT DID COMPLY-IS NOTED DURING AM ASSESSMENT TO HAVE 4+ PEDAL EDEMA TO FEET AND CALVES BILAT.-HARD TENSE [id number] TO TOUCH-FEET ELEVATED WHILE UP IN DAYROOM AND TOOK 45 MIN NAP IN BED WITH FEET ELEVATED AFTER SEVERAL PROMPTS-ORIENTED TO PERSON ONLY-BELIEVES HE IS AT THE [facility]-WHEN INFORMED HE WAS IN HOSPITAL ASSUMES THAT HE WAS IN A [place] AND ASKED SEVERAL TIMES "WHERE DID THE WRECK OCCUR" OR "IS THE HIG[address] [place] COMING UP TO QUESTION ME" AND "WAS ANYONE ELSE INVOLVED" GAIT IS UNSTEADY-ROLLER WALKER PROVIDED AND INSTRUCTED ON USAGE-REVIWED FALL PRECAUTIONS AND PT STATES UNDERSTANDING. COMPLIENT WITH MEDICATIONS AND ACCEPTS VERBAL QUEING/REDIRECT/SUPPORT WITHOUT RESISTANCE. APPEARS DROWSY INITALLY THIS AM-NAPPING FOR LONG INTERVALS WHILE SITTING INCHAIR IN DAYROOM.
--- NOTE | 2018-12-09 14:19 | NUR ---
SHANIA sent referral to [facility], and [facility] care [facility].
--- NOTE | 2018-12-09 19:11 | NUR ---
ABDOMEN NOTED TO BE FIRM,SLIGHTLY DISTENDED-BS PRESENT X4-STATES HIS BOWELS MOVED THIS AM BUT IS NOT A RELIABLE RN FLIGHT-DR. GAN ON FLOOR AND NOTIFIED OF ABOVE-ORDERS RECEIVED. DID REPORT TO STAFF AT APPROX 1615 THAT HE FELT "WEIRD" AND NERVOUS-REQUESTING MEDICATION FOR ANXIETY-ZYPREXA 5MGPO PRN-WILL MONITOR
--- NOTE | 2018-12-09 23:50 | NUR ---
ASSUMED CARE @ 19:15. REPORTED THAT HE FELT HAPPY TODAY, DENIES SI AND HI. CALLED ON HOUSE PHONE. REPORTED THAT SHE DID NOT ANSWER AND HE WAS WORRIED ABOUT HER. REMINDED THAT , REDIRECTED SUCCESSFULLY. WENT TO BED AFTER SNACKS. AWAKENED @ 21:30 FOR 2100 MEDS. PROVIDED CLEAN PIJAMA BOTTOMS, HE HAS WET HIS BOTTOMS, AND WAS NAKED.
--- NOTE | 2018-12-10 00:44 | NUR ---
AWAKENED @ 0030, WALKED INTO HALLWAY WITH ONLY A BLANKET ON. ALLOWED HIMSELF TO BE AMBULATED BACK TO HIS ROOM X1 ASSIST. CLEAN PIJAMA BOTTOMS AND BRIEF PROVIDED. INCONTINENT OF BLADDER. REMAINS CALM, BUT CONFUSED. 2300 MEDS INCLUDING NEW DOSE OF SEROQUEL 50 PROVIDED. ALLOWED HIMSELF TO BE LAID DOWN IN BED AND SHEETS/BLANKETS ADJUSTED. REMINDED THAT HE WOULD NEED TO GO TO THE TOILET WHEN HE FELT THE URGE TO HAVE A BM. NO BM YET. ABD CONTINUES TO BE FIRM, NORMOACTIVE BOWEL SOUNDS X4Q. HRRR, LUNGS CTA ALL DE ANDA. PULSES EQUAL TO ALL EXTREMITIES.
--- NOTE | 2018-12-10 06:10 | NUR ---
AWAKENED, SITTING ON THE SIDE OF THE BED. INCONTINENT OF BM. WATERY STOOL AFTER MAGNESIUM CITRATE AT HS. SLEPT 7 HOURS.
[2018-12-10 07:45] VITALS: BP 107/41
--- NOTE | 2018-12-10 10:21 | NUR ---
0815: Arrived to patients room in response to bed alarm. Observed patient sitting on floor beside bed, awake, oriented to name (unch'd). Head-to-toe assessment completed, no apparent injury. YK=944/69, P=62, R=16, skin w/d, color WNL, neuro-checks WNL. Dr. Segura and Dr. Horn notified of fall, no new orders at this time. [facility] space control supervisor notified of non injury fall. Will continue to monitor with neuro-checks, and observation/assessment.
--- NOTE | 2018-12-10 11:15 | NUR ---
Recreational Therapy Weekly Progress Note Date of Admission: 11/27/18 Date of Activity Therapy Assessment: 11/30/2018 Activity Goal: Patient will participate in 2 recreational therapy groups per day until discharge. Initial Goal: Increase/maintain reality orientation. Weekly progress towards goal: On track Group participation level: Moderate Behaviors observed: Patient attends a minimum of 1 group per day. Continues to be disoriented and require frequent prompting and direction during group. Ocassional aggitation. Plan: No change towards goal
[2018-12-10 12:45] VITALS: BP 163/69
--- NOTE | 2018-12-10 13:36 | NUR ---
1200: Continue to monitor patient post fall. Awake, denies pain when ask, to dining room for meals and group participation, mobility via w/c due to weakness and decrease mobility. Neuro-checks unchg'd, no apparent injury noted. More alert and awake at noon meal, feeds self with set-up and stand by assist.
[2018-12-10 20:51] VITALS: BP 158/47
--- NOTE | 2018-12-11 00:53 | NUR ---
ASSUMED CARE @ 1915. SITTING IN W/C IN DAY ROOM. TRIES TO STAND WITHOUT FOOT RESTS MOVED OUT OF THE WAY. EDUCATED REGARDING NEEDS ASSISTANCE FOR SAFETY. CONFUSION NOTED, DOES NOT CONPLY WITH VERBAL OR TACTILE CARE INSTRUCTIONS. TRANSFERRED TO COUCH AT PTS REQUEST. WATCHING BASKETBALL ON TV. OUT OF BED X2 WITH X1-2 ASSIST TO URINATE. WHEN PT ROLLS AND SETS ALARM OFF, HE GETS OUT OF BED. RETURNED TO BED X4. TYLENOL PROVIDED FOR BACK PAIN 04/07 @ 00:30. ONE ON ONE CONTINOUS MONITORING WITH PATIENT FROM 00:45.
--- NOTE | 2018-12-11 03:25 | NUR ---
PT SAT UP IN BED, FROM SITTING POSITION ON SIDE OF BED, OFFERED URINAL TO URINATE. PT CHARGED STAFF MEMEBER, WENT INTO THE HALLWAY AND ATTEMPTED TO PULL THE DOOR CLOSED ON STAFF MEMBER, FALLING IN THE PROCESS. PT WAS COMBATITIVE AND CONTINUED HE STATED 'I GOT TO ESCAPE THIS FACILITY'. PT AMBULATED WITH X2 ASSIST AND GAIT BELT TO THE TOILET, HE URINATED, THEN AMBULATED X1 ASSIST WITH GAIT BELT TO THE BED. LAID DOWN IN BED, COVERED UP AND HEN HE GOT UP AGAIN IN A FEW MINUTES. CONTINUAL MONITORING ON NECESSARY TO PROTECT PATIENT FROM LACK AWARENESS OF HIS OWN SAFETY. PRN 5MG OF OLANZAPINE PROVIDED FOR EXTREME AGITATION. PT TRANSFERRED TO W/C AND PPROPELLED TO THE DAY ROOM, TV TURNED ON, AND PT SETTLED ON SOFA WITH HIS PILLOW. ANXIETY, AGITATION, IMPULSIVENESS NOTED. DENIES BURNING AND DYSURIA.
[2018-12-11 03:43] LABS: CALCIUM 8.8 mg/dL (8.5-10.1); CREATININE 0.8 mg/dL (0.7-1.3); POTASSIUM 4.2 mmol/L (3.5-5.1)
--- NOTE | 2018-12-11 04:14 | NUR ---
CONTINUALLY STANDS WHILE SITTING ON SOFA IN DAY ROOM. WHEN STAFF ATTEMPTED TO PUT GAIT BELT ON, PT GRABBED STAFF BY THE ARMS, RESPONDING WITH ANGER, SAYING " YOUR NOT GOING TO PUT THAT ON ME". REMINDED THAT THE GAIT BELT WAS JUST TO PROTECT HIS SAFETY WHEN HE STANDS UP, HE SAID," THERE IS NO WHERE TO GO, SO JUST LEAVE ME ALONE" REPORTS SEEING BOXES OF CEREAL, THEN STANDS UP AND THEY DISAPPEAR. SKIN TEAR ON RIGHT FOREARM IS BLEEDING THROUGH THE STERI STRIPS. GAUZE SQUARE APPLIED, NON ADHERANT PAD AND WRAPPED IN ROLL GUAZE.
[2018-12-11 10:28] LABS: URINE BILIRUBIN NEGATIVE (Negative); URINE BLOOD NEGATIVE (Negative); URINE CLARITY CLEAR; URINE COLOR YELLOW; URINE GLUCOSE-RANDOM* NEGATIVE (Negative); URINE KETONES NEGATIVE (Negative); URINE LEUKOCYTES-REFLEX TRACE (Negative); URINE NITRITE-REFLEX NEGATIVE (Negative); URINE PROTEIN (DIPSTICK) NEGATIVE (Negative); URINE SPECIFIC GRAVITY <= 1.005 (1.005-1.035); URINE UROBILINOGEN 0.2 E.U./dl (0.2-1.0)
[2018-12-11 12:19] VITALS: BP 127/60
--- NOTE | 2018-12-11 14:42 | NUR ---
1440: Patient moved to room 519 as fall risk intervention to allow closer observation of patient by staff, bilat fall mats in place, bed in low position, room clean and free of obstacles, lights on, call street within reach. Dtr to call U this evening and will update her on move at that time.
--- NOTE | 2018-12-11 14:47 | NUR ---
7a-2p: Patient has been cooperative with staff, follows simple directions, forgetful within 2-[address] Segura here to assess patient, coordinated care with a visit from Dr. Horn, new orders wrote and noted. Ammonia level drawn, results 48, Dr. Horn notified. Telephone call from dtledy Messer, visited with THOMAS Mccrary about patients behavior and med changes, dtr will call back this pm for update. Patient has participated in group and therapy sessions today, less lethargic, less weakness with a steadier gait, but continues to require close supervision and assist x1-2 for ADL's, shower given today.
[2018-12-11 14:50] VITALS: BP 127/60
--- NOTE | 2018-12-11 15:57 | NUR ---
SHANIA sent a referral to [facility] to see if pt qualify for memory care unit. SHANIA will follow-up with pt to see if he accepted into facility.
[2018-12-11 19:23] VITALS: BP 104/53
[2018-12-12 00:18] VITALS: BP 104/53
[2018-12-12 00:23] VITALS: BP 104/53
--- NOTE | 2018-12-12 03:32 | NUR ---
PT REMAINS UNPREDICTABLE WITH SHORT MEMORY. NEEDS CONTANT SUPERVISION HE NEEDS TO BE REMINDED TO AMBULATE WITH WALKER FOR SUPPORT. OUT WATCHING TV. TOOK HS MEDS PRESCRIBED. ASSISTED TO BEDAROUND 2300. SLEPT WELL UP TO THIS TIME.
[2018-12-12 07:48] VITALS: BP 112/54
--- NOTE | 2018-12-12 08:15 | NUR ---
CLIENT OUT THIS AM FOR BREAKFAST TO EAT, IN W/C ROLLING SELF TO ROOM. APPEARS VERY SLEEPY. OXYGEN SAT TAKEN. 87% ON ROOM AIR. RECHECKED SAT AND TOLD CLIENT TO TAKE A DEEP BREATH, 91%. LUNGS DIMINISHED, SWELLING TO ANKLE/PEDAL +2. ABLE TO WALK WITH WALKER OR WITHOUT. WHEN HE WALKS, HE STATED HE WAS WALKING LIKE A DUCK.
[2018-12-12 11:08] VITALS: BP 112/54
--- NOTE | 2018-12-12 13:15 | NUR ---
WALKING AROUND THE DINNING ROOM WITHOUT WALKER. ENCOURAGE PATIENT TO USE WALKER.
--- NOTE | 2018-12-12 15:05 | NUR ---
ATTENDING GROUP AT THIS TIME. CLIENT STATED HE WANTED TO GO SOUTH. ASKING ANOTHER PATIENT THAT IS DISCHARGING IF HE IS GOING TO GO [place] OR [place]. HE IS WANTING TO GO HOME.
[2018-12-12 17:25] VITALS: BP 139/61
[2018-12-12 19:36] VITALS: BP 146/81
[2018-12-13 02:26] VITALS: BP 146/81
--- NOTE | 2018-12-13 02:47 | NUR ---
PT CONTINUES TO EXHIBIT CONFUSION AND MEMORY PROBLEMS. OUT IN DAY AREA WITH WALKER BUT OCCASIONALLY FORGETS AND WALKS W/O IT. WATCHED TV EARLY, AND TOOK HS MEDS PRESCRIBED. UP AND DOWN A COUPLE TIMES TONIGHT TO THE BATHROOM TO VOID. SLEPT WELL ALL IN ALL.
[2018-12-13 07:00] VITALS: BP 124/54
[2018-12-13 10:43] VITALS: BP 124/54
--- NOTE | 2018-12-13 16:53 | NUR ---
7a-7p: Up in halls ambulatory with walker, gait steady, shower and shave completed this a.m. Oriented to name only, cooperative with staff, participates in meals and therapy/groups. Increase independence with ADL's noted, susan Messer given update on status, med changes and dc planning. Yellow finger band sent home with susan Messer, due to tight fit of band on finger. 2-3+ noted to BLE. Page to Dr. Eduardo @ [phone], no return call. Dr. Horn here to see patient. Susan Messer here @ [phone] for visit. Will cont. to monitor.
[2018-12-13 19:38] VITALS: BP 166/62
--- NOTE | 2018-12-14 02:39 | NUR ---
IN DAYROOM VISITING WITH PEERS AT START OF SHIFT-FULL RANGE AFFECT-PLEASANT WITH NOTED SPONTANEOUS SMILING AND VERBAL RESPONSES, COMPLIENT WITH HS MEDICATIONS-TRAZADONE 50MG GIVEN PO PRN AT 2130 APPROX 30 MIN AFTER GOING TO BED. DID APPEAR TO REST BRIEFLY BUT BACK UP IN HALLWAY FULLY DRESSED AT APPROX 2330-STATES HE THOUGHT IT WAS TIME TO GET UP FOR DAY. APPROACHED THIS NURSE SHORT TIME LATER REQUESTING MEDICATION FOR LOW BACK PAIN RATED A 7 ON 1-10 SCALE-TYLENOL 625MG PO PRN AT APPROX 2345 WITH REPORTED FAIR RELIEF-STATES BACK "STILL HURTS" AT 0030 BUT RATES LEVEL 4.
[2018-12-14 07:22] VITALS: BP 138/42
--- NOTE | 2018-12-14 08:00 | NUR ---
CLIENT UP WALKING WITH WALKER THIS AM. STATED HE HAS SOME PAIN TO LOWER BACK OF 6 ON 1-10 SCALE. LUNGS CLEAR. SWELLING TO LOWER EXT NOT MUCH. GOAL TODAY WAS WAS TO KEEP EVERYTHING IN ORDER. STATED HIS BACK HURTS WHEN HE LEANS OVER, SIT DOWN, AND STANDING UP. ENCOURAGE USE OF WALKER, FORGETS AT TIMES.
[2018-12-14 12:20] VITALS: BP 138/42
[2018-12-14 12:21] VITALS: BP 138/42
--- NOTE | 2018-12-14 14:12 | NUR ---
CLIENT HAS BEEN PARTICIPATING IN GROUP THIS AFTERNOON. NO SIGNS OF CONFUSION.
--- NOTE | 2018-12-14 17:24 | NUR ---
EATING DINNER. CLIENT HAS ATTENDED GROUPS TODAY, WALKING WITH WALKER. ASKED ABOUT ONCE THIS SHIFT.
[2018-12-14 19:22] VITALS: BP 127/54
[2018-12-14 22:43] VITALS: BP 127/54
--- NOTE | 2018-12-15 04:46 | NUR ---
PT CONTINUES TO BE QUITE CONFUSED AND HAS BEEN GOING INTO OTHER PTS ROOMS. SEVERAL TIMES DURING THE EVENING AND ONCE AGAIN EARLY THIS AM PT FOUN IN THE WRONG ROOM. ESCORTED TO HIS OWN ROOM EACH TIME. DOES NOT SEEM TO PROCESS THAT HE NEEDS TO NOT ENGAGE IN THIS BEHAVIOR.
[2018-12-15 05:58] LABS: CALCIUM 8.2 mg/dL (8.5-10.1); CREATININE 0.8 mg/dL (0.7-1.3); POTASSIUM 3.7 mmol/L (3.5-5.1)
[2018-12-15 08:20] VITALS: BP 150/50
--- NOTE | 2018-12-15 09:43 | NUR ---
Patient Name: LOIS DELEON Admission Date: 11/27/18 DISCHARGE PLAN: Pt will be discharge to [facility] Care Assessment: Pt was assessed by Dr. Horn. Pt was diagnose with Major Neurocognitive Disorder. Pt was assessed with his medication regiment. Level II Assessment: None Transportation: Pt was transported by [facility] Special Instructions/Notes: Pt will be in a memory care lockdown unit. DISCHARGE TO FACILITY: Memory Care unit Facility: [facility] Fax: Address: [address] [place] [id number] Contact Name: Radha Yancey PCP: BRINDA Psychiatrist: [facility] Facility psychiatrist
[2018-12-15] MEDS ORDERED: FLOMAX0.4 MG PO (10:00)
[2018-12-15] MEDS ORDERED: CLOPIDOGREL75 MG PO (10:01)
[2018-12-15] MEDS ORDERED: LIPITOR 20 MG T20 M1 PO (10:01)
[2018-12-15] MEDS ORDERED: METOPROLOL SUCC25 M1 PO (10:03)
[2018-12-15] MEDS ORDERED: COZAAR100 MG PO (10:03)
[2018-12-15] MEDS ORDERED: ASPIR 8181 MG PO (10:05)
[2018-12-15] MEDS ORDERED: HALOPERIDOL 5 MG5 MG PO (10:06)
[2018-12-15] MEDS ORDERED: ACETAMINOPHEN325 M1 PO (10:06)
[2018-12-15] MEDS ORDERED: TRAZODONE HCL50 MG PO (10:07)
[2018-12-15] MEDS ORDERED: VITAMIN D5000 UNIT PO (10:07)
[2018-12-15] MEDS ORDERED: ZYPREXA 5 MG TAB5 M1 PO (10:07)
[2018-12-15] MEDS ORDERED: FINASTERIDE5 MG PO (10:09)
--- NOTE | 2018-12-15 10:30 | NUR ---
Nutrition: pt remains on [facility] unit. Continues to eat 100% of meals and voices no concerns to RD. Enjoys the food. No new weight to evaluate since 11/27. Continue as low risk.
--- NOTE | 2018-12-15 10:54 | NUR ---
PATIENT DISCHARGED TO [facility] AT 10:55, ORDERS DR. GAN. GOALS ACHIEVED. NURSE HAD PREVIOUSLY GIVEN REPORT TO CHARGE NURSE AT [facility] ALL BELONGINGS SENT WITH PATIENT; TRANSPORTED BY [facility].
--- NOTE | 2018-12-17 21:40 | D ---
[facility] [place] [address] DISCHARGE SUMMARY Name: PANCHOLOIS ELIZABETH ALAN Room #: 522B-B [facility] IN M.R.#: [id number] Admission: 11/27/18 ������������������ Attend Phys: Savage Renee MD Discharge: 12/15/18 ������������������ Date of : 31 Report #: [id number] THIS REPORT FOR: //name// CC: Doe Renee DATE OF SERVICE: 12/15/2018 OPTOMETRIST ASSISTANT: Scott Segura MD. 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 MEDICAL COMORBIDITIES: Coronary artery disease status post remote stenting and balloon, open heart surgery as well. Discharged to the [facility] for memory care. DISCHARGE MEDICATIONS: Tamsulosin 0.4 mg p.o. at bedtime for BPH; clopidogrel bisulfate 75 mg p.o. daily for coronary artery disease; atorvastatin 20 mg p.o. at 1700 daily for hyperlipidemia; metoprolol succinate that is extended release; Toprol-XL 25 mg p.o. daily, hold if heart rate less than 60. We will start potassium 100 mg p.o. daily for hypertension; aspirin 81 mg chewable daily for cardioprotection; Tylenol 650 mg p.o. q. 4 hours p.r.n. for headache or pain level 1-5; trazodone 50 mg p.o. at bedtime p.r.n. for sleep; Haldol 2.5 mg p.o. b.i.d. with meals for psychosis; olanzapine 5 mg p.o. q. 4 hours p.r.n. for agitation; cholecalciferol 5000 international units p.o. daily for supplementation; finasteride 5 mg p.o. daily at 1700 for BPH as well. Recommend continuing with multivitamin with iron and minerals daily. LABORATORY DATA: This admission, most recent hematology, H and H 12.4 and 34.5, white count 6.9, platelet count 199. He had increased segmented neutrophil percentage, decreased lymphocyte percentage. Most recent chemistries on 12/15/2018, sodium 143, potassium 3.7, chloride 107, bicarbonate 26, BUN 27, creatinine 0.8, estimated GFR 92, glucose 103, calcium 8.2. Urinalysis on admission was completely negative. He had been treated with olanzapine and Depakote earlier in the hospitalization; however, the patient had continued adverse behaviors at night and several falls, so this regimen was discontinued. He did achieve blood levels as high as 65 on Depakote and even with these falls, he was never Depakote toxic or hyperammonemic. UDS this admission is negative except for benzodiazepines, which the patient had been given. Microbiology this admission, blood culture x 2 was negative. [facility] [address] [place] [address] DISCHARGE SUMMARY Name: PANCHOLOISRebecca HARDY Room #: 522B-B [facility] IN M.R.#: [id number] Admission: 11/27/18 ������������������ Attend Phys: Savage Renee MD Discharge: 12/15/18 ������������������ Date of : 31 Report #: [id number] EKG on admission showed a QTC of 415, QT 369, rate of 76. REASON FOR ADMISSION: As follows. An 83-year-old male presented to the ED with increased weakness in his legs and feeling faint; however, the daughter reported increased confusion over the last 3 weeks after passing of his second , calling her daily and speaking as if the is there, confusing in his sister and his late . HOSPITAL COURSE: The patient was admitted to the Geriatric Psychiatry Unit. The patient clearly was not fully oriented and had impairments in recent memory, attention and executive function and felt to have major neurocognitive disorder. His DPOA was enacted. His daughter, Chaim, is his DPOA. During the hospitalization, there were several falls. He had become assaultive at night. After a couple of falls and severalbad sundowning at night I discussed options with Dr. Segura. We elected to discontinue the Depakote and olanzapine and switch to Haldol regimen. Fortunately, the Haldol regimen improved that cases. The risks, benefits, alternatives of antipsychotics in the elderly were discussed with daughter, Chaim. She agreed with treatment. PHYSICAL EXAMINATION: VITAL SIGNS: On the day of discharge is as follows: Temperature 36.6, pulse 88, respirations 18, BP 150/50 and O2 sat 94%. Hypertension was better controlled over the course of the hospitalization. Ambulation is with a walker. He does show some safety impairment, even despite redirection. MENTAL STATUS EXAM: This is a well-developed, well-nourished, disheveled man, appearing stated age. Attention limited. Concentration limited. Speech is normal rate. Thought process linear, sometimes tangential. Mood and affect congruent, this could be variable as well from flat to euthymia. He denied at the time of discharge auditory, visual and tactile hallucinations, but at times during admission did appear to be responding. No SI. No HI. Some helplessness and hopelessness. Memory is known to be impaired. Insight and judgment limited. Fund of knowledge below average at this point. Prognosis for this patient is guarded given advancing age and having a neurodegenerative disorder requiring prison placement. ��������������������������������������������� <ELECTRONICALLY SIGNED> ���������������������������������������� By: Merrill Horn, ��������������������������������������������� 12/17/18 [id number] Merrill Horn DO /nt
== END 2018-12-15 11:42 | DRG 57 ==
LOC: ER 09:25 → SBH 12:19 → EROBS 12:19 → SBH 12:19
PROVIDERS: Internal Medicine Geriatric Medicine; Nurse Practitioner; Psychiatry & Neurology Psychiatry; Student in an Organized Health Care Education/Training Program; ADMIT Psychiatry & Neurology Psychiatry
DX: G30.9 Alzheimer's disease, unspecified (principal); F02.81 Dementia in other diseases classified elsewhere, unspecified severity, with behavioral disturbance; F32.9 Major depressive disorder, single episode, unspecified; I10 Essential (primary) hypertension; F41.9 Anxiety disorder, unspecified; E78.00 Pure hypercholesterolemia, unspecified; I25.10 Atherosclerotic heart disease of native coronary artery without angina pectoris; E78.5 Hyperlipidemia, unspecified; J44.9 Chronic obstructive pulmonary disease, unspecified; N40.0 Benign prostatic hyperplasia without lower urinary tract symptoms; R41.3 Other amnesia; Z79.82 Long term (current) use of aspirin; Z87.81 Personal history of (healed) traumatic fracture; Z98.42 Cataract extraction status, left eye; Z98.41 Cataract extraction status, right eye; I25.2 Old myocardial infarction; Z95.5 Presence of coronary angioplasty implant and graft; Z88.6 Allergy status to analgesic agent; Z79.899 Other long term (current) drug therapy
CPT/HCPCS: 10880